=== PATIENT | female | born 1985 | race Two or more races ===

== ENCOUNTER 2018-03-07 23:54 | Emergency (ER) | payer OTHER ==
[~2018-03-07] VITALS: Ht 167.6 cm; Wt 70.3 kg
[2018-03-08 01:03] LABS: Basophils # (auto) 0 uL; Eosinophils # (auto) 0 uL; Hemoglobin 8.6 g/dL (12.2-16.2); Lymphocytes # (auto) 0.8 uL; Monocytes # (auto) 0.8 uL; Nucleated Red Blood Cells % 0.1 %
[2018-03-08 01:05] LABS: Basophils % (auto) 0.4 % (0.0-2.0); Eosinophils % (auto) 0.3 % (0.0-7.0); Hematocrit 27.6 % (36.0-46.0); Lymphocytes % (auto) 7.3 % (10.0-50.0); Mean Corpuscular Hemoglobin 21.2 pg (28.0-32.0); Mean Corpuscular Hgb Conc. 31.2 g/dL (32.0-36.0); Mean Corpuscular Volume 67.9 fL (80.0-100.0); Monocytes % (auto) 7.1 % (0.0-12.0); Neutrophils # (auto) 9.6 uL; Neutrophils % (auto) 84.9 % (37.0-80.0); Platelet Count (auto) 328 10^3/uL (140-450); Red Blood Cells 4.06 10^6/uL (4.0-5.20); Red Cell Distribution Width 16.8 % (11.8-14.3); White Blood Cell 11.3 10^3/uL (4.4-10.8)
[2018-03-08 01:12] LABS: Albumin 2.3 g/dL (3.4-5.0); Anion Gap 12 (5-15); Aspartate Aminotransferase 18 U/L (15-37); BUN/Creatinine Ratio 13.1; Blood Urea Nitrogen 8 mg/dL (7-18); Calcium 8.4 mg/dL (8.5-10.1); Carbon Dioxide 22 mmol/L (21-32); Chloride 99 mmol/L (98-107); GFR African American 145 mL/min; GFR Non-African American 120 mL/min; Glucose 322 mg/dL (74-106); Magnesium 1.3 mg/dL (1.6-2.6); Potassium 3.6 mmol/L (3.5-5.1); Sodium 133 mmol/L (136-145)
[2018-03-08 01:21] LABS: Alanine Aminotransferase 16 U/L (13-56); Alkaline Phosphatase 63 U/L (45-117); Bilirubin, Total 0.5 mg/dL (0.2-1.0); Total Protein 6.8 g/dL (6.4-8.2)
[2018-03-08 01:49] LABS: Urine Bacteria FEW /hpf (None Seen); Urine Blood Negative /uL (Negative); Urine Specific Gravity 1.022 (1.001-1.035); Urine WBC 16 /hpf (0 - 5)
[2018-03-08 04:45] VITALS: BP 116/62
[2018-03-08] MEDS ORDERED: cefTRIAXone 1GM/10ml IVPUSH 10 ML IV ONE (04:45)
[2018-03-08] MEDS ORDERED: ALBUTEROL SULF 2.5 MG/0.5ML(0.5%) NEB SOLN NEB ONE (04:45)
[2018-03-08] MEDS ORDERED: InsuLIN REG 1unit/0.01ml Soln (100units/ml) IV ONE (04:45)
[2018-03-08] MEDS ORDERED: IPRATROPIUM BROM 0.5 MG/2.5ML INH SOL NEB ONE (04:45)
== END 2018-03-08 06:09 | disposition home or self-care (01) ==
LOC: ER 23:59
DX: J06.9 Acute upper respiratory infection, unspecified (principal); J45.901 Unspecified asthma with (acute) exacerbation; N39.0 Urinary tract infection, site not specified; E11.65 Type 2 diabetes mellitus with hyperglycemia
CPT/HCPCS: 36415; 80053; 81001; 82962; 83036; 83735; 84443; 84484; 84702; 85025; 93005; 94640; 96374; 96375